=== PATIENT | female | born 1985 | race Caucasian/White ===

== ENCOUNTER 2017-11-02 17:05 | Emergency (ER) | payer OTHER ==
[~2017-11-02] VITALS: Ht 167.6 cm; Wt 108.9 kg
--- NOTE | 2017-11-02 17:51 | ED.ADGEN ---
Past History Past Medical History: Cancer, Other (FEDERICA LIEBERMAN DO) Past Medical History: Cancer Additional Past Medical Histor: history of prior melanoma with resection and radiation chemotherapy 5 years (SONIA RUSSO MD) Past Surgical History: Cancer Surgery, Other (FEDERICA LIEBERMAN DO) Additional Past Surgical Histo: neck dissection for melanoma (SONIA RUSSO MD) Alcohol Use: None Drug Use: None (FEDERICA LIEBERMAN DO) Drug Use: None (SONIA RUSSO MD) Adult General Chief Complaint Chief Complaint Nausea vomiting, loose stools (FEDERICA LIEBERMAN DO) HPI HPI Patient is a 32-year-old female with history of chronic back pain secondary to cancer surgery is on daily morphine and oxycodone presents with intermittent daily nausea with vomiting for the past 5 days and 2 episodes of loose stool, once yesterday and once today. Patient last vomited 2 hours prior to ED arrival. She states it contained stomach contents. Patient has had clear liquids and Jell-O for the past 2 days. Reports occasional abdominal pain. Denies fever chills, sweats, no recent antibiotics or GI illness exposure. History of melanoma with radical neck dissection 2012 at the [place].[] (FEDERICA LIEBERMAN DO) Review of Systems Review of Systems Review symptoms as per history of present illness. All other review symptoms are negative. [] All other systems were reviewed and found to be within normal limits, except as documented in this note. (FEDERICA LIEBERMAN DO) Current Medications Current Medications Current Medications Medications (Trade) Dose Ordered Sig/Sujit Start Time Stop Time Status Last Admin Dose Admin Famotidine (Pepcid Vial) 20 mg 1X ONCE 11/02/17 18:15 11/02/17 18:16 DC 11/02/17 18:14 20 MG Morphine Sulfate (Morphine 4mg Syringe) 4 mg 1X ONCE 11/02/17 18:15 11/02/17 18:16 DC 11/02/17 18:10 4 MG Ondansetron HCl (Zofran) 8 mg 1X ONCE 11/02/17 18:15 11/02/17 18:16 DC 11/02/17 18:11 8 MG Prochlorperazine Edisylate (Compazine) 10 mg 1X ONCE 11/02/17 18:45 11/02/17 18:53 DC 11/02/17 19:26 10 MG (SONIA RUSSO MD) Allergies Allergies Allergies Coded Allergies Type Severity Reaction Last Updated Verified No Known Drug Allergies 11/02/17 No (SONIA RUSSO MD) Physical Exam Physical Exam Constitutional: Well developed, well nourished, fatigued and weak appearing.. [] HENT: Normocephalic, atraumatic, bilateral external ears normal, oropharynx moist, no oral exudates, nose normal. [] Eyes: PERRLA, EOMI, conjunctiva normal, no discharge. [] Neck: Normal range of motion, supple.right anterior neck surgical scars. [] Cardiovascular:Heart rate regular rhythm, no murmur [] Lungs & Thorax: Bilateral breath sounds clear to auscultation [] Abdomen: Bowel sounds normal, soft, nontender nondistended. [] Skin: Warm, dry, no erythema, no rash. [] Neurologic: Alert and oriented X 3, normal motor function, normal sensory function, no focal deficits noted. [] Psychologic: Affect normal, judgement normal, mood normal. [] (FEDERICA LIEBERMAN DO) Current Patient Data Vital Signs Vital Signs Date Time Temp Pulse Resp B/P (MAP) Pulse Ox O2 Delivery O2 Flow Rate FiO2 11/02/17 18:10 14 100 Room Air 11/02/17 17:24 98.6 68 (SONIA RUSSO MD) Lab Results Laboratory Tests Test 11/02/17 17:40 11/02/17 18:24 White Blood Count 8.7 x10^3/uL (4.0-11.0) Red Blood Count 5.01 x10^6/uL (3.50-5.40) Hemoglobin 15.2 g/dL (12.0-15.5) Hematocrit 44.0 % (36.0-47.0) Mean Corpuscular Volume 88 fL (79-100) Mean Corpuscular Hemoglobin 30 pg (25-35) Mean Corpuscular Hemoglobin Concent 35 g/dL (31-37) Red Cell Distribution Width 13.4 % (11.5-14.5) Platelet Count 286 x10^3/uL (140-400) Neutrophils (%) (Auto) 78 % (31-73) H Lymphocytes (%) (Auto) 16 % (24-48) L Monocytes (%) (Auto) 6 % (0-9) Eosinophils (%) (Auto) 0 % (0-3) Basophils (%) (Auto) 0 % (0-3) Neutrophils # (Auto) 6.7 x10^3uL (1.8-7.7) Lymphocytes # (Auto) 1.4 x10^3/uL (1.0-4.8) Monocytes # (Auto) 0.5 x10^3/uL (0.0-1.1) Eosinophils # (Auto) 0.0 x10^3/uL (0.0-0.7) Basophils # (Auto) 0.0 x10^3/uL (0.0-0.2) Sodium Level 137 mmol/L (136-145) Potassium Level 3.7 mmol/L (3.5-5.1) Chloride Level 103 mmol/L (98-107) Carbon Dioxide Level 23 mmol/L (21-32) Anion Gap 11 (6-14) Blood Urea Nitrogen 8 mg/dL (7-20) Creatinine 0.9 mg/dL (0.6-1.0) Estimated GFR (Cockcroft-Gault) 71.7 BUN/Creatinine Ratio 9 (6-20) Glucose Level 100 mg/dL (70-99) H Calcium Level 9.1 mg/dL (8.5-10.1) Total Bilirubin 0.6 mg/dL (0.2-1.0) Aspartate Amino Transferase (AST) 23 U/L (15-37) Alanine Aminotransferase (ALT) 32 U/L (14-59) Alkaline Phosphatase 84 U/L (46-116) Total Protein 7.8 g/dL (6.4-8.2) Albumin 3.7 g/dL (3.4-5.0) Albumin/Globulin Ratio 0.9 (1.0-1.7) L Lipase 211 U/L (73-393) Serum Test, Qualitative Negative (NEG) Urine Collection Type Unknown Urine Color Yellow Urine Clarity Cloudy Urine pH 5.5 Urine Specific [place] 1.025 Urine Protein 30 mg/dl (NEG-TRACE) Urine Glucose (UA) Neg mg/dL (NEG) Urine Ketones (Stick) >=160 mg/dL (NEG) Urine Blood Neg (NEG) Urine Nitrite Neg (NEG) Urine Bilirubin Neg (NEG) Urine Urobilinogen Dipstick 0.2 mg/dL (0.2 mg/dL) Urine Leukocyte Esterase Neg (NEG) Urine RBC 3-5 /HPF (0-2) Urine WBC 5-10 /HPF (0-4) Urine Squamous Epithelial Cells Mod /LPF Urine Bacteria Few /HPF (0-FEW) Urine Mucus Marked /LPF (SONIA RUSSO MD) Lab Results Microbiology 11/02/17 Urine Culture - Final, Complete 11/02/17 Urine Culture Result 1 (OREN) - Final, Complete (FEDERICA LIEBERMAN DO) EKG EKG [] (FEDERICA LIEBERMAN DO) Radiology/Procedures Radiology/Procedures [] (FEDERICA LIEBERMAN DO) Course & Med Decision Making Course & Med Decision Making Pertinent Labs and Imaging studies reviewed. (See chart for details) [Vomiting and diarrhea and generalized fatigue and malaise. Abdomen soft, nontender on my exam.IV fluids, antiemetics and pain medication given. Work up in progress. [facility] (FEDERICA LIEBERMAN DO) Course & Med Decision Making Time is now 6:30 PM patient's laboratory work reviewed by me. Patient's CBC is unremarkable she does have a a slight left shift with neutrophil predominance, CMP is unremarkable with exception of mildly elevated glucose 100 patient lipase is normal. Although patient looks better her urinalysis is still pending she has not produced urine and she still mildly nauseated. I ordered some Compazine for her some additional fluids Laboratory Tests Test 11/02/17 17:40 White Blood Count 8.7 x10^3/uL (4.0-11.0) Red Blood Count 5.01 x10^6/uL (3.50-5.40) Hemoglobin 15.2 g/dL (12.0-15.5) Hematocrit 44.0 % (36.0-47.0) Mean Corpuscular Volume 88 fL (79-100) Mean Corpuscular Hemoglobin 30 pg (25-35) Mean Corpuscular Hemoglobin Concent 35 g/dL (31-37) Red Cell Distribution Width 13.4 % (11.5-14.5) Platelet Count 286 x10^3/uL (140-400) Neutrophils (%) (Auto) 78 % (31-73) H Lymphocytes (%) (Auto) 16 % (24-48) L Monocytes (%) (Auto) 6 % (0-9) Eosinophils (%) (Auto) 0 % (0-3) Basophils (%) (Auto) 0 % (0-3) Neutrophils # (Auto) 6.7 x10^3uL (1.8-7.7) Lymphocytes # (Auto) 1.4 x10^3/uL (1.0-4.8) Monocytes # (Auto) 0.5 x10^3/uL (0.0-1.1) Eosinophils # (Auto) 0.0 x10^3/uL (0.0-0.7) Basophils # (Auto) 0.0 x10^3/uL (0.0-0.2) Sodium Level 137 mmol/L (136-145) Potassium Level 3.7 mmol/L (3.5-5.1) Chloride Level 103 mmol/L (98-107) Carbon Dioxide Level 23 mmol/L (21-32) Anion Gap 11 (6-14) Blood Urea Nitrogen 8 mg/dL (7-20) Creatinine 0.9 mg/dL (0.6-1.0) Estimated GFR (Cockcroft-Gault) 71.7 BUN/Creatinine Ratio 9 (6-20) Glucose Level 100 mg/dL (70-99) H Calcium Level 9.1 mg/dL (8.5-10.1) Total Bilirubin 0.6 mg/dL (0.2-1.0) Aspartate Amino Transferase (AST) 23 U/L (15-37) Alanine Aminotransferase (ALT) 32 U/L (14-59) Alkaline Phosphatase 84 U/L (46-116) Total Protein 7.8 g/dL (6.4-8.2) Albumin 3.7 g/dL (3.4-5.0) Albumin/Globulin Ratio 0.9 (1.0-1.7) L Lipase 211 U/L (73-393) Serum Test, Qualitative Negative (NEG) Time is now 7:42 PM patient still felt mildly nauseous but mildly improved like to go home. Urinalysis shows signs of ketones which is a marker of starvation ketosis patient is tolerating by mouth she will be given Compazine and follow- up with her primary care doctor. discharge: I've spoken with the patient and/or caregivers. I've explained the patient's condition, diagnosis and treatment plan based on information available to me at this time. I've answered the patient's and/or caregivers questions and addressed any concerns. The patient and/or caregivers have a good understanding the patient's diagnosis, condition and treatment plan as can be expected at this point. Vital signs have been stabilized. The patient's condition is stable for discharge from the emergency department. The patient will pursue further outpatient evaluation with her primary care provider or other designated consulting physician as outlined in the discharge instructions. Patient and/or caregivers are agreeable to this plan of care and follow-up instructions have been explained in detail. The patient and/or caregivers have received these instructions in written format and expressed understanding of these discharge instructions. The patient and her caregivers are aware that if any significant change in condition or worsening of symptoms should prompt him to immediately return to this of the closest emergency department. If an emergent department is not readily available I would encourage him to call 911. (SONIA RUSSO MD) Final Impression Final Impression [] Problems: (FEDERICA LIEBERMAN DO) Final Impression Nausea and vomiting, dehydration, Problems: (SONIA RUSSO MD) Dragon Disclaimer Dragon Disclaimer This electronic medical record was generated, in whole or in part, using a voice recognition dictation system. (FEDERICA LIEBERMAN DO) FEDERICA LIEBERMAN DO Nov 02, 2017 17:51 SONIA RUSSO MD Nov 02, 2017 18:48
[2017-11-02 18:13] LABS: BASO % 0 % (0-3); EOS % 0 % (0-3); HEMOGLOBIN 15.2 g/dL (12.0-15.5); LYMPH # 1.4 x10^3/uL (1.0-4.8); LYMPH % 16 % (24-48); MEAN CORPUSCULAR HEMOGLOBIN 30 pg (25-35); MEAN CORPUSCULAR HGB CONC 35 g/dL (31-37); MEAN CORPUSCULAR VOLUME 88 fL (79-100); MONO # 0.5 x10^3/uL (0.0-1.1); MONO % 6 % (0-9); NEUT # 6.7 x10^3uL (1.8-7.7); NEUT % 78 % (31-73); PLATELET COUNT 286 x10^3/uL (140-400); RED BLOOD COUNT 5.01 x10^6/uL (3.50-5.40); RED CELL DISTRIBUTION WIDTH 13.4 % (11.5-14.5); WHITE BLOOD COUNT 8.7 x10^3/uL (4.0-11.0)
[2017-11-02] MEDS ORDERED: FAMOTIDINE 20 MG/2 ML VIAL IVP ONE (18:15)
[2017-11-02] MEDS ORDERED: MORPHINE SULFATE 4 MG/ML DISP.SYRIN. IV ONE (18:15)
[2017-11-02] MEDS ORDERED: ONDANSETRON PF 4 MG/2 ML VIAL. IV ONE (18:15)
[2017-11-02 18:17] LABS: ALBUMIN 3.7 g/dL (3.4-5.0); ALBUMIN/GLOBULIN RATIO 0.9 (1.0-1.7); CALCIUM 9.1 mg/dL (8.5-10.1); CREATININE 0.9 mg/dL (0.6-1.0); GFR 71.7; POTASSIUM 3.7 mmol/L (3.5-5.1); TOTAL BILIRUBIN 0.6 mg/dL (0.2-1.0); TOTAL PROTEIN 7.8 g/dL (6.4-8.2)
[2017-11-02 18:30] LABS: PREG TEST PT QUAL NEGATIVE (NEG)
[2017-11-02] MEDS ORDERED: PROCHLORPERAZINE 10 MG/2 ML VIAL. IV ONE (18:45)
[2017-11-02 19:19] LABS: BACTERIA,URINE FEW /HPF (0-FEW); BILIRUBIN,URINE NEG (NEG); CLARITY,URINE CLOUDY; COLOR,URINE YELLOW; GLUCOSE,URINE NEG (NEG); NITRITE,URINE NEG (NEG); SQUAMOUS EPITHELIAL CELL,UR MOD /LPF; UROBILINOGEN,URINE 0.2 mg/dL (0.2 mg/dL)
[2017-11-02] MEDS ORDERED: DICY10CA53 PO (19:46)
[2017-11-02] MEDS ORDERED: PROC10TA57 PO (19:46)
[2017-11-02 19:50] VITALS: BP 122/68
== END 2017-11-02 19:55 | disposition home or self-care (01) ==
LOC: ER 17:05
DX: E86.0 Dehydration (principal); R11.2 Nausea with vomiting, unspecified; G89.3 Neoplasm related pain (acute) (chronic); Z79.891 Long term (current) use of opiate analgesic
CPT/HCPCS: 36415; 80053; 81001; 83690; 84703; 85025; 87086; 96374; 96375; 99284; J0780; J2270; J2405; S0028; 81025

== ENCOUNTER 2018-01-26 18:00 | Emergency (ER) | payer OTHER ==
[~2018-01-26] VITALS: Ht 167.6 cm; Wt 90.7 kg
[~2018-01-26 18:00] MED LIST: DICY10CA53 PO; PROC10TA57 PO
[2018-01-26 18:44] LABS: BASO % 0 % (0-3); EOS % 0 % (0-3); HEMATOCRIT 44.4 % (36.0-47.0); HEMOGLOBIN 14.9 g/dL (12.0-15.5); LYMPH # 0.6 x10^3/uL (1.0-4.8); LYMPH % 6 % (24-48); MEAN CORPUSCULAR HEMOGLOBIN 30 pg (25-35); MEAN CORPUSCULAR HGB CONC 34 g/dL (31-37); MEAN CORPUSCULAR VOLUME 90 fL (79-100); MONO # 0.3 x10^3/uL (0.0-1.1); MONO % 4 % (0-9); NEUT # 8.5 x10^3uL (1.8-7.7); NEUT % 90 % (31-73); PLATELET COUNT 269 x10^3/uL (140-400); RED BLOOD COUNT 4.96 x10^6/uL (3.50-5.40); RED CELL DISTRIBUTION WIDTH 13.3 % (11.5-14.5); WHITE BLOOD COUNT 9.4 x10^3/uL (4.0-11.0)
--- NOTE | 2018-01-26 18:44 | ED.ADGEN ---
Past History Past Medical History: Cancer Additional Past Medical Histor: history of prior melanoma with resection and radiation chemotherapy 5 years Past Surgical History: Cancer Surgery, Other Additional Past Surgical Histo: neck dissection for melanoma Alcohol Use: None Drug Use: None Adult General Chief Complaint Chief Complaint " .. I ve been vomiting since this morning... Dry heaves now...".. " I have not had any morphine since yesterday..." HPI HPI Patient is a 32 year old female who presents with above hx and complaints, abdomen pain, nausea and vomiting. Patient has extensive medical history with diagnosis of melanoma in cervical lymph node. Patient underwent excision, radiation and chemotherapy in 2010. Patient has been dependent on morphine and oxycodone since that time. Patient gets all her care at the [place] and [place]. Patient is a presented with nausea and vomiting and severe abdomen cramping. Patient had piloerection. Does appear to be in narcotic withdrawal. Review of Systems Review of Systems Constitutional: Denies fever or chills [] Eyes: Denies change in visual acuity, redness, or eye pain [] HENT: Denies nasal congestion or sore throat [] Respiratory: Denies cough or shortness of breath [] Cardiovascular: No additional information not addressed in HPI [] GI: Complaints of abdominal pain, nausea, vomiting, . Denies bloody stools or diarrhea [] : Denies dysuria or hematuria [] Musculoskeletal: Denies back pain or joint pain [] Integument: Denies rash or skin lesions [] Neurologic: Denies headache, focal weakness or sensory changes [] Endocrine: Denies polyuria or polydipsia [] All other systems were reviewed and found to be within normal limits, except as documented in this note. Family History Family History Noncontributory Current Medications Current Medications Current Medications Medications (Trade) Dose Ordered Sig/Sujit Start Time Stop Time Status Last Admin Dose Admin Ceftriaxone Sodium 1 gm/ Sodium Chloride 50 ml @ 100 mls/hr 1X ONCE 01/26/18 20:30 01/26/18 20:59 UNV Ceftriaxone Sodium (Rocephin) 1 gm Q24H 01/26/18 20:45 01/26/18 21:35 DC 01/26/18 21:07 1 GM Famotidine (Pepcid Vial) 20 mg 1X ONCE 01/26/18 19:00 01/26/18 19:01 DC 01/26/18 19:21 20 MG Famotidine (Pepcid) 20 mg 1X ONCE 01/26/18 19:00 01/26/18 19:01 DC Fentanyl (Duragesic 75mcg/ Hr) 1 patch 1X ONCE 01/26/18 20:30 01/26/18 20:31 DC 01/26/18 20:22 1 PATCH Lactated Ringer's 1,000 ml @ 1,000 mls/hr Q1H 01/26/18 18:50 01/26/18 19:49 DC 01/26/18 20:15 1,000 MLS/HR Morphine Sulfate (Morphine 10mg Syringe) 10 mg 1X ONCE 01/26/18 20:45 01/26/18 20:46 DC 01/26/18 21:08 10 MG Ondansetron HCl (Zofran) 8 mg 1X ONCE 01/26/18 19:00 01/26/18 19:01 DC 01/26/18 19:21 8 MG Allergies Allergies Allergies Coded Allergies Type Severity Reaction Last Updated Verified No Known Drug Allergies 11/02/17 No Physical Exam Physical Exam Constitutional: In acute distress, non-toxic appearance. [] HENT: Normocephalic, atraumatic, bilateral external ears normal, oropharynx moist, no oral exudates, nose normal. Heart surgical scar on side of neck Eyes: PERRLA, EOMI, conjunctiva normal, no discharge. [] Neck: Normal range of motion, no tenderness, supple, no stridor. [] Cardiovascular: Tachycardia Heart rate regular rhythm, no murmur [] Lungs & Thorax: Bilateral breath sounds clear to auscultation [] Abdomen: Bowel sounds decreased, soft, generalized crampy tenderness, no masses , no pulsatile masses. Umbilicus scar Skin: Warm, dry, no erythema, no rash. []Piloerection Back: No tenderness, no CVA tenderness. [] Extremities: No tenderness, no cyanosis, no clubbing, ROM intact, no edema. No cording appreciated Neurologic: Alert and oriented X 3, normal motor function, normal sensory function, no focal deficits noted. [] Psychologic: Affect anxious, judgement normal, mood depressed Current Patient Data Vital Signs Vital Signs Date Time Temp Pulse Resp B/P (MAP) Pulse Ox O2 Delivery O2 Flow Rate FiO2 01/26/18 21:15 78 20 107/78 (88) 100 Room Air 01/26/18 20:30 99.2 Lab Results Laboratory Tests Test 01/26/18 18:18 01/26/18 18:23 01/26/18 18:25 01/26/18 19:20 Prothrombin Time 12.0 SEC (9.4-11.4) H Prothrombin Time INR 1.2 (0.9-1.1) H PTT 24 SEC (23-33) Maternal Serum HCG Beta Subunit < 1 mIU/mL (0-6) Creatine Kinase 49 U/L (26-192) Creatine Kinase MB (Mass) < 0.5 ng/mL (0.0-3.6) Creatine Kinase MB Relative Index 1.0 % (0-4) Troponin I Quantitative < 0.017 ng/mL (0-0.055) White Blood Count 9.4 x10^3/uL (4.0-11.0) Red Blood Count 4.96 x10^6/uL (3.50-5.40) Hemoglobin 14.9 g/dL (12.0-15.5) Hematocrit 44.4 % (36.0-47.0) Mean Corpuscular Volume 90 fL (79-100) Mean Corpuscular Hemoglobin 30 pg (25-35) Mean Corpuscular Hemoglobin Concent 34 g/dL (31-37) Red Cell Distribution Width 13.3 % (11.5-14.5) Platelet Count 269 x10^3/uL (140-400) Neutrophils (%) (Auto) 90 % (31-73) H Lymphocytes (%) (Auto) 6 % (24-48) L Monocytes (%) (Auto) 4 % (0-9) Eosinophils (%) (Auto) 0 % (0-3) Basophils (%) (Auto) 0 % (0-3) Neutrophils # (Auto) 8.5 x10^3uL (1.8-7.7) H Lymphocytes # (Auto) 0.6 x10^3/uL (1.0-4.8) L Monocytes # (Auto) 0.3 x10^3/uL (0.0-1.1) Eosinophils # (Auto) 0.0 x10^3/uL (0.0-0.7) Basophils # (Auto) 0.0 x10^3/uL (0.0-0.2) Sodium Level 141 mmol/L (136-145) Potassium Level 3.7 mmol/L (3.5-5.1) Chloride Level 105 mmol/L (98-107) Carbon Dioxide Level 25 mmol/L (21-32) Anion Gap 11 (6-14) Blood Urea Nitrogen 7 mg/dL (7-20) Creatinine 0.8 mg/dL (0.6-1.0) Estimated GFR (Cockcroft-Gault) 82.1 BUN/Creatinine Ratio 9 (6-20) Glucose Level 125 mg/dL (70-99) H Calcium Level 9.2 mg/dL (8.5-10.1) Total Bilirubin 0.6 mg/dL (0.2-1.0) Aspartate Amino Transferase (AST) 21 U/L (15-37) Alanine Aminotransferase (ALT) 32 U/L (14-59) Alkaline Phosphatase 78 U/L (46-116) Total Protein 7.6 g/dL (6.4-8.2) Albumin 3.7 g/dL (3.4-5.0) Albumin/Globulin Ratio 0.9 (1.0-1.7) L Lipase 105 U/L (73-393) Lactic Acid Level 1.7 mmol/L (0.4-2.0) Urine Collection Type Unknown Urine Color [place] Urine Clarity Hazy Urine pH 6.0 Urine Specific [place] >=1.030 Urine Protein 30 mg/dl (NEG-TRACE) Urine Glucose (UA) Neg mg/dL (NEG) Urine Ketones (Stick) >=160 mg/dL (NEG) Urine Blood Neg (NEG) Urine Nitrite Neg (NEG) Urine Bilirubin Neg (NEG) Urine Urobilinogen Dipstick 1 mg/dL (0.2 mg/dL) Urine Leukocyte Esterase Neg (NEG) Urine RBC 3-5 /HPF (0-2) Urine WBC 5-10 /HPF (0-4) Urine Squamous Epithelial Cells Few /LPF Urine Bacteria Mod /HPF (0-FEW) Urine Mucus Marked /LPF Urine Opiates Screen Pos (NEG) Urine Methadone Screen Neg (NEG) Urine Barbiturates Neg (NEG) Urine Phencyclidine Screen Neg (NEG) Urine Amphetamine/Methamphetamine Neg (NEG) Urine Benzodiazepines Screen Neg (NEG) Urine Cocaine Screen Neg (NEG) Urine Cannabinoids Screen Neg (NEG) Urine Ethyl Alcohol Neg (NEG) Test 01/26/18 20:10 Influenza Type A (Rapid) Negative (NEGATIVE) Influenza Type B (Rapid) Negative (NEGATIVE) EKG EKG My interpretation of EKG shows a sinus rhythm at 67 bpm. Sinus arrhythmia. No findings acute STEMI[] Radiology/Procedures Radiology/Procedures My interpretation of abdomen film shows no free air the diaphragm. Cardiac silhouette within normal limits. No specific acute cardiopulmonary changes Nonspecific bowel gas pattern. Some scoliosis.[] Course & Med Decision Making Course & Med Decision Making Pertinent Labs and Imaging studies reviewed. (See chart for details). Wear Fentanyl patch [facility]. Clear fluid diet. Zofran for nausea and vomiting. Clear fluid diet. [] Final Impression Final Impression 1. Nausea, Vomiting, 2. Abdomen Pain 3. Hx. of melanoma cancer-since03/2013. ( Chemo, Radiation)[] 4. Suspect narcotic dependence and presentation of narcotic withdrawal Problems: Dragon Disclaimer Dragon Disclaimer This electronic medical record was generated, in whole or in part, using a voice recognition dictation system. BALTAZAR UNDERWOOD MD Jan 26, 2018 18:44
[2018-01-26] MEDS ORDERED: MORPHINE SULFATE 10 MG/ML SYRINGE. SQ ONE ×2 (18:45→20:45)
[2018-01-26] MEDS ORDERED: ONDANSETRON PF 4 MG/2 ML VIAL. IV ONE ×2 (18:45→19:00)
[2018-01-26] MEDS ORDERED: IV RINGERS SOLUTION,LACTATED 1,000 ML IV ONE (18:45)
[2018-01-26] MEDS ORDERED: IV RINGERS SOLUTION,LACTATED 1,000 ML IV SCH (18:50)
[2018-01-26 18:54] LABS: ALBUMIN 3.7 g/dL (3.4-5.0); ALBUMIN/GLOBULIN RATIO 0.9 (1.0-1.7); CALCIUM 9.2 mg/dL (8.5-10.1); CREATININE 0.8 mg/dL (0.6-1.0); GFR 82.1; POTASSIUM 3.7 mmol/L (3.5-5.1); TOTAL BILIRUBIN 0.6 mg/dL (0.2-1.0); TOTAL PROTEIN 7.6 g/dL (6.4-8.2)
[2018-01-26] MEDS ORDERED: FAMOTIDINE 20 MG/2 ML VIAL IVP ONE (19:00)
[2018-01-26] MEDS ORDERED: FAMOTIDINE 20 MG TABLET JT ONE (19:00)
--- NOTE | 2018-01-26 19:06 | EKG ---
[address] [address] Test Date: 2018-01-26 Test Time: 19:01:38 Pat Name: EDILIA FALL Department: Room: Gender: F Telephone Order Supervisor: CHIOMA : [id number] Requested By: BALTAZAR UNDERWOOD Order Number: [id number] Reading MD: Measurements Intervals [place] Rate: 67 P: 32 OR: 144 QRS: 23 QRSD: 70 T: 8 QT: 392 QTc: 417 Interpretive Statements SINUS ARRHYTHMIA NO SPECIFIC ECG ABNORMALITIES RI6.01 No previous ECG available for comparison
[2018-01-26] MEDS ORDERED: ONDA8TAB12 PO (20:11)
[2018-01-26] MEDS ORDERED: FENT1PAT19 TD (20:11)
[2018-01-26 20:16] LABS: AMPHETAMINE/METHAMPHETAMINE NEG (NEG); BARBITURATES NEG (NEG); BENZODIAZEPINES NEG (NEG); CANNABINOIDS NEG (NEG); COCAINE NEG (NEG); METHADONE NEG (NEG); OPIATES POS (NEG); PHENCYCLIDINE NEG (NEG)
[2018-01-26 20:17] LABS: BACTERIA,URINE MOD /HPF (0-FEW); BILIRUBIN,URINE NEG (NEG); CLARITY,URINE HAZY; COLOR,URINE AMBER; GLUCOSE,URINE NEG (NEG); NITRITE,URINE NEG (NEG); SQUAMOUS EPITHELIAL CELL,UR FEW /LPF; UROBILINOGEN,URINE 1 mg/dL (0.2 mg/dL)
[2018-01-26] MEDS ORDERED: fentaNYL 75MCG/HR 1 PATCH PATCH TD ONE (20:30)
[2018-01-26] MEDS ORDERED: CEPH-264 PO (20:30)
[2018-01-26] MEDS ORDERED: cefTRIAXone IV Push 1 GM VIAL. IVP SCH (20:45)
[2018-01-26 20:49] LABS: INFLUENZA A PATIENT NEGATIVE (NEGATIVE); INFLUENZA B PATIENT NEGATIVE (NEGATIVE)
[2018-01-26 21:15] VITALS: BP 107/78
--- NOTE | 2018-01-27 08:07 | RAD ---
Indication: Epigastric and left-sided abdominal pain, nausea vomiting and fever. Technique: Acute abdominal series x-rays Comparison: None Findings: Heart is normal in size. Lungs are clear. No pneumothorax or pleural effusion. No evidence of free intraperitoneal air. No abnormally dilated bowel loops or air-fluid levels. The contours of solid abdominal organs are within normal limits. No abnormal calcific densities projecting over the kidneys or expected course of the ureters to suggest renal stone or ureteral calculi. Mild levoscoliosis at the thoracolumbar junction. Otherwise, visualized bones are within normal limits. Impression: No acute radiographic findings.
== END 2018-01-26 21:16 | disposition home or self-care (01) ==
LOC: ER 18:00
DX: R10.84 Generalized abdominal pain (principal); R11.2 Nausea with vomiting, unspecified; Z85.820 Personal history of malignant melanoma of skin; Z92.21 Personal history of antineoplastic chemotherapy
CPT/HCPCS: 36415; 74022; 80053; 80307; 81001; 82553; 83605; 83690; 84484; 84702; 85025; 85610; 85730; 87040; 87086; 87804; 93005; 96361; 96372; 96374; 96375; 96376; 99285; J0696; J2270; J2405; J7120; S0028; G0479